=== PATIENT | female | born 1995 | race Two or more races ===

== ENCOUNTER 2021-06-19 04:32 | Emergency (ER) | payer SELFPAY ==
[~2021-06-19] VITALS: Ht 165.1 cm; Wt 56.7 kg
[2021-06-19] MEDS ORDERED: IV NS 0.9% 1,000 ML BAG IV ONE (05:30)
[2021-06-19 06:13] LABS: BASOPHILS # (AUTO) 0.1 K/uL (0.0-0.2); BASOPHILS % (AUTO) 0.6 % (0.0-2.0); EOSINOPHILS % (AUTO) 0.1 % (0.0-6.0); HEMATOCRIT 41 % (33-45); HEMOGLOBIN 13.9 g/dL (11.5-14.8); LYMPHOCYTES # (AUTO) 1.6 K/uL (0.8-4.8); LYMPHOCYTES % (AUTO) 17.6 % (20.0-44.0); MEAN CORPUSCULAR HGB CONC 34 g/dl (31.0-36.0); MEAN CORPUSCULAR VOLUME 92 fL (82-100); MONOCYTES # (AUTO) 0.4 K/uL (0.1-1.30); MONOCYTES % (AUTO) 4.8 % (2.0-12.0); NEUTROPHILS % (AUTO) 76.9 % (43.0-81.0); PLATELET COUNT (AUTO) 280 K/uL (150-450); RED BLOOD CELL COUNT(AUTO) 4.49 MIL/uL (4.0-5.2); WHITE BLOOD COUNT (AUTO) 9.1 K/uL (4.3-11.0)
--- NOTE | 2021-06-19 07:10 | NUR ---
PATIENT IN BED, EASILY AROUSABLE, BREATHING EVEN AND NON LABORED
[2021-06-19 09:38] LABS: CALCIUM, SERUM 9.2 mg/dL (8.5-10.1); CREATININE 0.7 mg/dL (0.6-1.3); POTASSIUM 3.2 mmol/L (3.5-5.1)
[2021-06-19 09:49] LABS: ALBUMIN 4.4 g/dL (3.4-5.0); BILIRUBIN,DIRECT 0.1 mg/dL (0.0-0.2); BILIRUBIN,TOTAL 0.3 mg/dL (0.2-1.0); TOTAL PROTEIN, SERUM 9.1 g/dL (6.4-8.2)
--- NOTE | 2021-06-19 11:24 | NUR ---
Patient discharged to home in stable condition. Written and verbal after care instructions given. Patient verbalizes understanding of instruction.
--- NOTE | 2021-06-19 11:33 | NUR ---
PATIENT IS USING LANDLINE TO CALL SOMEONE TO PICK HER UP
[2021-06-19 11:52] VITALS: BP 110/88
== END 2021-06-19 11:52 | disposition home or self-care (01) ==
LOC: ER 04:38
DX: F10.129 Alcohol abuse with intoxication, unspecified (principal); Y90.9 Presence of alcohol in blood, level not specified
CPT/HCPCS: 36415; 80048; 80076; 80143; 80320; 85025; 96360; 99285; J7030; G0480